=== PATIENT | female | born 2000 | race Hispanic/Latino ===

== ENCOUNTER 2023-12-12 18:00 | Inpatient (IN) | payer OTHER, SELFPAY ==
[~2023-12-12 18:00] MED LIST: Bupivacaine 0.25% HCL 30 ML VIAL ONE
[2023-12-12] MEDS ORDERED: hydrALAZINE 20 MG/ML VIAL SLOW IVP PRN ×2 (21:48→22:22)
[2023-12-12] MEDS ORDERED: Tranexamic Acid 1,000 MG/10 ML VIAL IVP PRN (22:22)
[2023-12-12] MEDS ORDERED: Ondansetron PF 4 MG/2 ML Vial IVP PRN (22:22)
[2023-12-12] MEDS ORDERED: Methylergonovine 0.2 MG/ML VIAL IM PRN (22:22)
[2023-12-12] MEDS ORDERED: Carboprost 250 MCG/ML AMP IM PRN (22:22)
[2023-12-12] MEDS ORDERED: Diphenoxylate HCl/Atropine Tablet PO PRN (22:22)
[2023-12-12] MEDS ORDERED: Lidocaine 1% (PF) 30 ML VIAL SC PRN (22:22)
[2023-12-12] MEDS ORDERED: Misoprostol 200 MCG TAB PR PRN (22:22)
[2023-12-12] MEDS ORDERED: Promethazine HCl 25 MG/ML VIAL IM PRN (22:22)
[2023-12-12 22:28] VITALS: BMI 31.4
[2023-12-12] MEDS: Lactated Ringer's 1,000 ML IV SCH (22:40)
[2023-12-12] MEDS: Misoprostol 100 MCG TAB VAG SCH (23:23)
[2023-12-12 23:26] LABS: Hematocrit 30.4 % (34.9-44.5); Hemoglobin 10.9 g/dL (12.0-15.5); Mean Corpuscular HGB CONC 35.9 g/dL (32.0-36.0); Mean Corpuscular Hemoglobin 31.4 pg (27.0-33.0); Mean Corpuscular Volume 87.6 fl (81.6-98.3); Mean Platelet Volume 10.2 fl (7.4-10.4); Platelet Count 210 10x3/uL (150-450); RBC Distribution Width 12.8 % (11.5-14.5); Red Blood Cell (RBC) Count 3.47 10x6/uL (3.90-5.03); White Blood Cell (WBC) Count 9.5 10x3/uL (3.5-10.5)
[2023-12-12] MEDS: Penicillin G Potassium 5 MILL.UNITS in Sodium Chloride 0.9% 100 ML IVPB SCH (23:32)
[2023-12-12 23:58] LABS: Syphilis Antibody Nonreactive (Nonreactive); Syphilis Antibody Index 0.09 S/CO (<1.00 Non-Reactive)
[2023-12-13] LABS: HBSAg Index 0.26 S/CO (0-0.99); Hep B Surf Ag - L&D Non-Reactive S/CO (NonReactive)
[2023-12-13] MEDS: Penicillin G 2.5 MILL.units 2.5 MILL.UNITS in Premix 1 BAG IVPB SCH (03:41)
[2023-12-13] MEDS: Oxytocin 30 units/NS 500 ML 500 ML IV SCH (16:09)
[2023-12-13] MEDS ORDERED: ePHEDrine Sulfate 50 MG/10 ML VIAL SLOW IVP PRN (21:36)
[2023-12-13] MEDS ORDERED: Ondansetron PF 4 MG/2 ML Vial IVP PRN (21:36)
[2023-12-13] MEDS ORDERED: Naloxone HCl 0.4 mg/ml Vial IVP PRN ×2 (21:36)
[2023-12-13] MEDS ORDERED: diphenhydrAMINE 50 MG/ML VIAL IVP PRN (21:36)
[2023-12-13] MEDS ORDERED: Lactated Ringer's 500 ML IV PRN (21:36)
[2023-12-13] MEDS ORDERED: Moisturizing Cream (Eucerin) 113 GM JAR TOP PRN (21:36)
[2023-12-13] MEDS ORDERED: Promethazine HCl 25 MG/ML VIAL IM PRN (21:36)
[2023-12-13] MEDS ORDERED: Acetaminophen 325 MG TAB PO PRN (21:36)
[2023-12-13] MEDS ORDERED: fentaNYL 2 mcg/Ropivacaine 0.2% Epidural 100 ML CADD EPIDURAL SCH (21:45)
[2023-12-13] MEDS ORDERED: Communication Order-Pharmacy FS PRN (21:45)
[2023-12-14] MEDS ORDERED: Methylergonovine 0.2 MG/ML VIAL IM PRN (01:47)
[2023-12-14] MEDS ORDERED: Preparation H Ointment 28 GM TUBE PR PRN (01:47)
[2023-12-14] MEDS ORDERED: hydrALAZINE 20 MG/ML VIAL SLOW IVP PRN (01:47)
[2023-12-14] MEDS ORDERED: Lanolin Ointment 7 GM TUBE TOP PRN (01:47)
[2023-12-14] MEDS ORDERED: Bisacodyl 10 MG SUPP PR PRN (01:47)
[2023-12-14] MEDS ORDERED: Milk Of Magnesia 30 ML UDCUP PO PRN (01:47)
[2023-12-14] MEDS ORDERED: Ondansetron PF 4 MG/2 ML Vial IVP PRN (01:47)
[2023-12-14] MEDS ORDERED: Misoprostol 200 MCG TAB VAG PRN (01:47)
[2023-12-14] MEDS ORDERED: Oxytocin 30 units/NS 500 ML 500 ML IV SCH (02:00)
[2023-12-14] MEDS: fentaNYL/Ropivacaine Epidural 100 ML ONE (04:25)
[2023-12-14] MEDS: Ibuprofen 800 MG TAB PO SCH (05:53)
[2023-12-14] MEDS: Prenatal Vitamin 1 TAB PO SCH (14:32)
[2023-12-14] MEDS: Docusate 100 MG CAP PO SCH (14:33)
[2023-12-14] MEDS: Ferrous Sulfate 325 MG TAB PO SCH (17:09)
[2023-12-14] MEDS: Boostrix 0.5 ML (Tdap) VIAL (>/=7 yrs of age) IM ONE (19:02)
[2023-12-15 14:15] VITALS: BP 104/60; TEMP 98.2
== END 2023-12-15 13:15 | disposition home or self-care (01) | DRG 807 ==
LOC: CSHLD 21:30 → CSHPED 12-14 03:59
PROVIDERS: ADMIT Obstetrics & Gynecology; ATTEND Obstetrics & Gynecology
PROC: 10E0XZZ Delivery of Products of Conception, External Approach (ICD-10-PCS; principal; 2023-12-12)
PROC: 3E0P7VZ Introduction of Hormone into Female Reproductive, Via Natural or Artificial Opening (ICD-10-PCS; 2023-12-12)
PROC: 10H07YZ Insertion of Other Device into Products of Conception, Via Natural or Artificial Opening (ICD-10-PCS; 2023-12-12)
PROC: 3E033XZ Introduction of Vasopressor into Peripheral Vein, Percutaneous Approach (ICD-10-PCS; 2023-12-12)
DX: O99.824 Streptococcus B carrier state complicating childbirth (principal); Z37.0 Single live birth; O99.52 Diseases of the respiratory system complicating childbirth; Z3A.37 37 weeks gestation of pregnancy
CPT/HCPCS: 51702; 76815; 85027; 86780; 86850; 86900; 86901; 87340; 88307; J0665; J2540; J2590; J3490; J7120